=== PATIENT | female | born 1990 | race Asian ===

== ENCOUNTER 2017-05-29 15:46 | Emergency (ER) | payer SELFPAY ==
[~2017-05-29] VITALS: Ht 172.7 cm; Wt 56.7 kg
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
[2017-05-29] MEDS ORDERED: SOMA250 MG PO (17:14)
[2017-05-29] MEDS ORDERED: IBUPROFEN600 MG ORAL (17:14)
[2017-05-29] MEDS ORDERED: CYCLOBENZAPRINE10 MG ORAL (17:14)
[2017-05-29 17:31] VITALS: BP 125/81
== END 2017-05-29 17:31 | disposition home or self-care (01) ==
LOC: EMR 17:20
DX: S16.1XXA Strain of muscle, fascia and tendon at neck level, initial encounter (principal); V43.52XA Car driver injured in collision with other type car in traffic accident, initial encounter; Y93.9 Activity, unspecified; Y92.410 Unspecified street and highway as the place of occurrence of the external cause; Z91.018 Allergy to other foods
CPT/HCPCS: 99284